=== PATIENT | male | born 1995 | race Caucasian/White ===

== ENCOUNTER 2018-07-29 01:46 | Emergency (ER) | payer BC ==
[~2018-07-29] VITALS: Ht 182.9 cm; Wt 85.0 kg
[~2018-07-29 01:46] MED LIST: ALBUTEROL0.09 MG/A1 IH; CONCERTA18 MG PO; XYREM500 MG/ML PO
[2018-07-29 01:50] VITALS: BP 133/83; TEMP 98.1
[2018-07-29 02:20] VITALS: PULSE 86
== END 2018-07-29 02:20 | disposition home or self-care (01) ==
LOC: COL.ER 01:46
DX: T15.92XA Foreign body on external eye, part unspecified, left eye, initial encounter (principal); H16.022 Ring corneal ulcer, left eye; F17.210 Nicotine dependence, cigarettes, uncomplicated